=== PATIENT | male | born 1965 | race Two or more races ===

== ENCOUNTER → 2024-10-02 | Outpatient (CLI) | payer MEDICAID, SELFPAY ==
--- NOTE | 2024-10-02 11:00 | XR_ITS ---
Examination: Abdomen sonogram, complete Date and time of exam: October 02, 2024 1108 hours INDICATIONS: Alcohol abuse history.. Technique: Multiple real-time grayscale transabdominal sonographic images of the abdomen have been obtained. Findings: Normal gallbladder Normal common bile duct 0.3 cm Pancreatic head 2.5 cm Aorta not enlarged Liver 14.4 cm fatty infiltration no focal liver lesions Normal hepatopedal portal venous flow Patent IVC Right kidney 12.6 cm renal cortex 2.0 cm Left kidney 10.7 cm cortex 2.0 cm Moderate bilateral renal parenchymal scar formation Spleen 10.0 cm IMPRESSION: Normal gallbladder Fatty liver Moderate bilateral renal parenchymal scar formation
== END | disposition home or self-care (01) ==
PROVIDERS: PCP Nurse Practitioner Primary Care; Referring Provider Nurse Practitioner Primary Care; Visit Provider Nurse Practitioner Primary Care
DX: K76.0 Fatty (change of) liver, not elsewhere classified (principal); Z72.89 Other problems related to lifestyle; N28.89 Other specified disorders of kidney and ureter
CPT/HCPCS: 76700

== ENCOUNTER 2024-10-09 08:44 | Emergency (ER) | payer MEDICAID, SELFPAY ==
[2024-10-09 08:55] VITALS: BP 122/77; PULSE 85; RESP 18; TEMP 36.8; O2SAT 99
[2024-10-09 08:56] VITALS: BMI 27.4
--- NOTE | 2024-10-09 09:58 | PD.EDEYE ---
ED Eye Problem RME/HPI General Chief complaint: Eye Problems Stated complaint: FOREIGN OBJECT L) EYE Time Seen by Provider: 10/09/24 08:55 Arrival date/time: 10/09/24 08:44 59-year-old male presents with concerns for injury to his left eye today patient reports that he hit his eye with a tree branch patient reports swelling of the conjunctiva. Patient reports no disturbances of vision Limitations: no limitations Related Data Previous Rx's ?Medication ?Instructions ?Recorded ibuprofen 600 mg tablet 600 mg PO Q6H #30 tabs 10/09/24 tobramycin 0.3 %-dexamethasone 0.1 2 drp ophthalmic (eye) QID 5 days 10/09/24 % eye drops,suspension #5 mL Allergies Allergy/AdvReac Type Severity Reaction Status Date / Time No Known Allergies Allergy Verified 10/09/24 08:49 Review of Systems Review of Systems Systems Reviewed: All systems reviewed, normal except as documented Constitutional Constitutional: Reports system reviewed and no additional complaints, except as documented, Denies fever(s) and Denies headache(s) Eyes Eyes: Reports system reviewed and no additional complaints, except as documented, Denies blurry vision and Reports other (Conjunctival swelling) ENT Ears, Nose, Mouth, and Throat: Reports system reviewed and no additional complaints, except as documented, Denies headache(s), Denies nasal congestion and Denies nasal discharge Cardiovascular Cardiovascular: Reports system reviewed and no additional complaints, except as documented, Denies chest pain and Denies dyspnea Respiratory Respiratory: Reports system reviewed and no additional complaints, except as documented, Denies chest congestion, Denies cough and Denies dyspnea Gastrointestinal Gastrointestinal: Reports system reviewed and no additional complaints, except as documented and Denies abdominal pain Integumentary/Breasts Skin/Breast: Reports system reviewed and no additional complaints, except as documented and Denies rash Neurologic Neurologic: Reports system reviewed and no additional complaints, except as documented, Reports as per HPI and Denies headache(s) Past Medical History Social History SMOKING STATUS: Never smoker ED Exam General Limitations: Present no limitations General appearance: Present alert and in no apparent distress Head Head exam: Present atraumatic Eye Eye exam: Present PERRL, EOMI and other (Conjunctival swelling) ENT ENT exam: Present normal exam, normal oropharynx and mucous membranes moist Neck Neck exam: Present normal inspection, full ROM and trachea midline Chest Chest inspection: Present normal inspection and symmetric chest wall rise Respiratory Respiratory exam: Present normal lung sounds bilaterally Cardiovascular Cardiovascular exam: Present regular rate, normal rhythm and normal heart sounds Abdominal Exam Abdominal exam: Present soft and normal bowel sounds Extremities Exam Extremities exam: Present normal inspection and full ROM Back Exam Back exam: Present normal inspection and full ROM Neurological Exam Neurological exam: Present alert, oriented X3 and CN II-XII intact Psychiatric Psychiatric exam: Present normal affect and normal mood Skin Skin exam: Present warm, dry, intact and normal color Course Quality Measures none Orders Category Date Time Status ED Eye Irrigation ONCE Care 10/09/24 09:01 Active Rincon Lamp to Bedside X1 Care 10/09/24 09:01 Active Fluorescein Sodium [Bio-Matilde] Med 10/09/24 09:33 Discontinued 1 mg LEFT EYE X1 ONE Fluorescein-Benoxin 0.3%-0.4% Med 10/09/24 09:01 Discontinued 2 drop LEFT EYE X1 ONE TETRACAINE Op Sharda 0.5% [Pontocaine Op Sharda 0.5%] Med 10/09/24 09:01 Discontinued 1 drop LEFT EYE X1 ONE Vital Signs Vital signs: Vital Signs Temperature 98.2 F 10/09/24 08:55 Pulse Rate 85 10/09/24 08:55 Respiratory Rate 18 10/09/24 08:55 Blood Pressure 122/77 10/09/24 08:55 Pulse Oximetry (%) 99 10/09/24 08:55 Oxygen Delivery Method Room Air 10/09/24 08:55 O2 saturation 99% room air within normal limits Procedures -ED Rincon Lamp Exam Left eye: Flourescein uptake:: Yes Rincon Lamp Findings: Normal Eye [facility] Narrative [facility] Narrative:: 59-year-old male presents with concerns for injury to his left eye today patient reports that he hit his eye with a tree branch patient reports swelling of the conjunctiva. Patient reports no disturbances of vision On exam patient well-appearing patient does not appear ill or toxic in no acute distress On exam patient is swelling of the left conjunctiva consistent with traumatic chemosis patient reports no disturbances in vision On exam patient does not appear to have any foreign bodies Rincon lamp exam performed pupil within normal limits patient has no entrapment of the eye Eyes irrigated patient discharged home with a prescription for antibiotics Explained to the patient would like him to follow-up with eye doctor in the next 24 to 48 hours for worsening symptoms return Patient data [place] [facility] [place] Clinical information provided by:: patient Social determinants that could affect healthcare access:: none Patient has the following chronic illnesses:: History How is presenting disease/condition affected by chronic disease/condition?: uneffected by Evaluation data The following diagnostics were reviewed and interpreted by me:: other (specify) (N/A) Lab and/or radiology exams considered but not ordered:: Considered not ordered Interpretation Summary: N/A Medications / Prescriptions Medications or Prescriptions considered but not ordered:: Given Medication administrations:: Medication Administration History Discontinued Medications Fluorescein Sodium (Fluorescein Sod 1 Mg Strp) 1 mg LEFT EYE X1 ONE Stop: 10/09/24 09:34 Fluorescein Sodium/Benoxinate HCl (Fluorescein-Benoxin 0.3%-0.4% 1 Drop) 2 drop LEFT EYE X1 ONE Stop: 10/09/24 09:02 Tetracaine HCl (Tetracaine Pf Op Sharda 0.5% 4 Ml Drpette) 1 drop LEFT EYE X1 ONE Stop: 10/09/24 09:02 Given Consultations Consultation(s) initiated? (list below): No Diagnosis Eye Problem Differential Diagnosis: corneal abrasion, corneal ulcer and ruptured globe Most likely diagnosis given after review of the tests above:: Chemosis Admission Indicated Admission indicated?: not indicated Admission Request Was there a request for admission?: No Disposition Plan Disposition Plan: Discharge Discharge Attestation Discharge Attestation: The patient and all family members were given an opportunity to ask questions and understood the discharge instructions. Discharge instructions specifically effects, indications for sooner follow up or return to the emergency department, and the expected course of current diagnosis. Patient condition: Stable Discharge Plan Plan Patient Disposition: HOME (Self Care) Discharge Disposition comment: Stable Prescriptions/Referrals Prescriptions/Med Rec: New ibuprofen 600 mg tablet 600 mg PO Q6H Qty: 30 0RF tobramycin-dexamethasone 0.3-0.1 % drops,suspension 2 drp ophthalmic (eye) QID 5 Days Qty: 5 0RF Problem List Clinical Impression: Chemosis of left conjunctiva Patient/Caregiver Discharge Instructions Additional Instructions: Please follow up with your primary care doctor in the next 24-48hrs for any worsening symptoms return here immediately Print Language: Bulgarian Stand Alone Forms: Missy Award Info., Patient Portal Info Letter PA/RECORD CLERK SALESPERSON Supervising Physician PA/RECORD CLERK SALESPERSON Supervising Physician: Dr. [email or web address]
[2024-10-09 11:28] VITALS: BP 146/78; PULSE 82; RESP 18; TEMP 36.6; O2SAT 100
== END 2024-10-09 11:30 | disposition home or self-care (01) ==
LOC: SERX 10:03
PROVIDERS: Emergency Provider Family Medicine; PCP Nurse Practitioner Primary Care
DX: H11.422 Conjunctival edema, left eye (principal)
CPT/HCPCS: 99283